=== PATIENT | female | born 1985 | race Caucasian/White ===

== ENCOUNTER 2020-11-30 06:09 | Observation (INO) | payer BC, SELFPAY ==
[2020-11-30] VITALS (7 sets, daily range): BP systolic 105–155; BP diastolic 69–98
[~2020-11-30] VITALS: Ht 157.5 cm; Wt 83.6 kg
[~2020-11-30 06:09] MED LIST: HEPARIN SOD (PORCINE) 5000UNITS/ML 1ML VIAL/SYRINGE SQ ONE; ceFAZolin SOD 1 GM in D5W MINI-BAG PLUS 50 ML IV ONE
[2020-11-30] MEDS ORDERED: AMIT25TA17 PO (06:49)
[2020-11-30] MEDS ORDERED: BUPR1TAB52 PO (06:49)
[2020-11-30] MEDS ORDERED: ZIPR20CA13 PO (06:49)
[2020-11-30] MEDS ORDERED: LORA2TAB14 PO (06:49)
[2020-11-30] MEDS ORDERED: dexameTHASONE 4 MG/ML 1ML VIAL (J1100 PER 1MG) As Ordered ONE (07:25)
[2020-11-30] MEDS ORDERED: LIDOCAINE 2% 100MG/5ML SDV (FOR ANES.) As Ordered ONE (07:25)
[2020-11-30] MEDS ORDERED: propofoL 200 MG/20 ML VIAL As Ordered ONE (07:25)
[2020-11-30] MEDS ORDERED: fentaNYL 250 MCG/5 ML INJECTION (J3010) As Ordered ONE (07:25)
[2020-11-30] MEDS ORDERED: ROCURONIUM BROMIDE 50 MG/5 ML VIAL As Ordered ONE ×2 (07:25→09:18)
[2020-11-30] MEDS ORDERED: ONDANSETRON 4MG/2ML VIAL As Ordered ONE (07:25)
[2020-11-30] MEDS ORDERED: MIDAZOLAM INJ 2MG/2ML VIAL (J2250 PER 1MG) As Ordered ONE (07:26)
[2020-11-30] MEDS ORDERED: GENTAMICIN SULF 80MG/2ML VIAL As Ordered ONE (07:31)
[2020-11-30] MEDS ORDERED: LIDOCAINE 1% MDV 20ML VIAL As Ordered ONE ×2 (07:31→09:53)
[2020-11-30] MEDS ORDERED: BUPIVACAINE LIPOSOME/PF 1.3% 20ML VIAL (13.3MG/ML)(EXPAREL)(C9290 PER1MG) As Ordered ONE (07:32)
[2020-11-30] MEDS ORDERED: EPINEPHrine INJ 1 MG/ML 1ML AMP As Ordered ONE ×2 (07:32→09:53)
[2020-11-30] MEDS ORDERED: SEVOFLURANE INHAL SOLN 250 ML BTL As Ordered ONE (08:28)
[2020-11-30] MEDS ORDERED: SUGAMMADEX SODIUM 500 MG/5 ML VIAL (BRIDION) As Ordered ONE (08:30)
[2020-11-30] MEDS ORDERED: ACETAMINOPHEN 1000MG 100ML IV BTL (OFIRMEV) (J0131 PER 10MG) As Ordered ONE (08:30)
[2020-11-30] MEDS ORDERED: HYDROmorphone HCL 2 MG/ML 1ML VIAL (J1170) As Ordered ONE (09:00)
[2020-11-30] MEDS ORDERED: ePHEDrine SULFATE 25 MG/5 ML(5MG/ML) SYRINGE As Ordered ONE (11:18)
[2020-11-30] MEDS ORDERED: ceFAZolin 1GM VIAL (J0690 PER 500MG) As Ordered ONE (12:07)
--- NOTE | 2020-11-30 13:19 | POST-OPPD ---
Postoperative Procedure Note Date Of Procedure: Nov 30, 2020 PREOPERATIVE DIAGNOSIS: Lipodystrophy back and thighs, abdominal skin redundancy POSTOPERATIVE DIAGNOSIS: same PROCEDURE: Liposculpture back and bilateral thighs, abdominoplasty SURGEON: Dr Brown PRINTER MACHINE: none ANESTHESIA: general ESTIMATED BLOOD LOSS: 150cc FINDINGS: lipodystrophy back, lateral and medial thigh SPECIMENS: pannus, liposuction fluid COMPLICATIONS: none REPLACED: none DRAINS: 10 mm DAVY x 2 POSTOPERATIVE CONDITION: stable DEANN BROWN DO Nov 30, 2020 13:19
[2020-11-30] MEDS ORDERED: LR 1,000 ML IV SCH (13:20)
[2020-11-30] MEDS ORDERED: ONDANSETRON 4MG/2ML VIAL IV PRN ×2 (13:20)
[2020-11-30] MEDS ORDERED: ACETAMINOPHEN TAB 650MG DOSE (2X325MG) PO PRN (13:20)
[2020-11-30] MEDS ORDERED: oxyCODONE 5MG TAB PO PRN (13:20)
--- NOTE | 2020-11-30 13:20 | ROOPDOC ---
[facility] Report Of Operation Report of Operation DATE OF PROCEDURE: 11/30/20 PREOPERATIVE DIAGNOSIS: Lipodystrophy back and thighs, abdominal skin redundancy POSTOPERATIVE DIAGNOSIS: same PROCEDURE: Liposculpture back and bilateral thighs, abdominoplasty SURGEON: Dr Brown PEARL DIGGER: none ANESTHESIA: general ESTIMATED BLOOD LOSS: 150cc FINDINGS: lipodystrophy back, lateral and medial thigh SPECIMENS: pannus 2034 gm, liposuction fluid 3700 ml COMPLICATIONS: none REPLACED: none DRAINS: 10 mm DAVY x 2 POSTOPERATIVE CONDITION: stable DESCRIPTION OF PROCEDURE: Procedure: Procedure: This is a 35-year-old female status post weight loss. Patient does not like remaining lipodystrophy on her back and her abdomen as well as her lateral thighs medial thighs down to the knee. Patient would like to have all those defects corrected. Patient is scheduled for liposculpture back, inner and outer thighs extending to the knee. Risks benefits and alternatives discussed with the patient in details. Informed consent confirmed and preoperative holding area. Patient was marked in upright position in the holding area. She was brought into the operating room, placed in supine position, preoperative antibiotics given, sequential stockings placed in the lower calves, and then general anesthesia is induced. Mandujano catheter introduced in the bladder without any difficulties with yellow clear urine present. Patient was placed in prone position with all bony prominences protected. She was prepped and draped in the usual sterile fashion. Two stab incisions were carried out along the upper back in the lower back. 1200 cc of tumescent solution was infiltrated throughout the upper and lower back. Vaser liposuction was performed for 5 minutes on each side. Then regular liposuction was done throughout the upper and lower back using different cannulas 3 and 4 mm in diameter. 1200 cc of liposuction fluid evacuated. Good symmetry achieved. Two small stab incisions carried out on the back of her thigh and tumescent solution infiltrated on the posterior lateral portion of the thigh 300 cc on each side. Suction assisted lipectomy performed with a 3 mm cannula taken out 300 cc of liposuction on each side. All incisions closed with interrupted 4 Monocryl sutures. Patient was repositioned into the supine position. She was prepped and draped in the usual sterile fashion. Two small stab incisions carried out on the upper medial thigh and the medial lower thigh. Tumescent solution infiltrated throughout the medial thigh and also through superior lateral thigh. Suction assisted lipectomy performed throughout the upper outer thigh and medial thigh all the way down to the knee. Total lipectomy 900 cc on each side. We turned our attention to the abdominoplasty portion of the procedure. Lower abdominal incision made 8 cm above the labial crease along patient's natural suprapubic crease. Incision carried out with 10 blade. Careful sharp dissection with electrocautery and PEEK cautery was done until the fascia of rectus muscle is identified. Following the musculoaponeurotic fascial plane superiorly, the abdominal skin and subcutaneous tissue are undermined. Vessels were identified throughout and either cauterized or suture ligated for hemostasis control. Infraumbilical flap was divided in the middle to aid the dissection. We continued our dissection until umbilicus was encountered. Rhomboid incision made around the umbilicus and dissection continued until xiphoid process superiorly and costal margins laterally. Rectus muscle evaluated and diathesis was identified 6 cm width at midline. Rectus muscle was plicated with 0 Vicryl sutures in interrupted fashion, followed by #1 PDS Stratofix sutures. Wound is irrigated with Gentamicin and normal saline irrigation. Exparel block given into rectus muscle total 16 mL. Patient placed on placed in the reflex position and excess tissue which consists off abdominal skin and subcutaneous tissue was measured and resected using electrocautery. Total weight of the pannus 2034 g. Careful hemostasis was assured. The flap was realigned and tacked with clamps. We started closure of the midline incision with deep sutures of 0 Vicryl. Subcutaneous layer closure with 3-0 Monocryl sutures, than 3-0 Monocryl V lock suture used for subdermal closure. The mons pubis was realigned. We continued closing the lower abdominal incision with 0 Vicryl sutures for deep layer, followed by 3-0 Monocryl sutures for subcutaneous layer, than 3-0 Monocryl V lock suture used for subdermal closure. Two10 mm Boris-Mueller drains were placed through lower abdominal incision and secured in place with 3-0 Monocryl sutures. New opening was created for the umbilical stump using electrocautery. The umbilicus was brought into view and sutured in place with interrupted 3-Monocryl, 4-0 Monocryl sutures and 5-0 plain gut sutures in the interrupted fashion. Remaining Exparel was given into the lower abdominal incision and the drain area. Prinio dressing applied to lower abdominal incision, Xeroform to umbilicus, and bulky dressing throughout. Abdominal binder applied. Foam padding with David dressing was applied to the both thighs. Patient extubated in the operating room without any difficulties and transferred to recovery room in stable condition. DEANN BROWN DO Nov 30, 2020 13:20
[2020-11-30] MEDS: fentaNYL 100 MCG/2 ML INJECTION (J3010) IV PRN ×2 (13:31→13:37)
[2020-11-30] MEDS: ceFAZolin SOD 1 GM in D5W MINI-BAG PLUS 50 ML IV SCH (16:27)
[2020-11-30] MEDS: PERCOCET 5MG/325MG TAB PO PRN ×2 (17:59→22:17)
--- NOTE | 2020-11-30 18:44 | ECGEPIP ---
[facility] Test Date: 2020-11-30 Pat Name: CHRISTINA WILKERSON Department: Room: - Gender: Female Radon Inspector: ALEXEY : 1985 Requested By: DEANN Warner Order Number: [id number] Reading MD: Phani Prabhakar Measurements Intervals [place] Rate: 94 P: 8 MS: 114 QRS: -3 QRSD: 86 T: 13 QT: 340 QTc: 425 Interpretive Statements Normal sinus rhythm No prior tracing in the system Electronically Signed on 11-30-2020 18:43:29 EDT by Phani Prabhakar
[2020-12-01] MEDS: ceFAZolin SOD 1 GM in D5W MINI-BAG PLUS 50 ML IV SCH ×3 (00:21→16:00)
[2020-12-01] MEDS: MORPHINE 4 MG/ML 1ML VIAL/SYRINGE (J2270) IV PRN ×4 (00:22→18:48)
[2020-12-01 02:00] VITALS: BP 118/26
[2020-12-01] MEDS: PERCOCET 5MG/325MG TAB PO PRN ×3 (02:27→17:14)
[2020-12-01] MEDS ORDERED: MORPHINE 2 MG/ML 1ML VIAL (J2270) IV ONE ×2 (05:55→08:10)
[2020-12-01 06:00] VITALS: BP 120/59
[2020-12-01] MEDS: LORazepam 2 MG/ML VIAL IV PRN ×2 (06:07→17:14)
--- NOTE | 2020-12-01 09:58 | IPNPDOC ---
Subjective General Date Seen: Dec 01, 2020 Subject Chief Complaint/History The patient is a 35-year-old female admitted with a reason for visit of Lipodystrohy Back,Thighs,Abdominal Skin Redundancy. Patient status liposuction back, thighs and abdominoplasty postop day 1. Patient is doing well as far is tolerating diet, urinating normally and ambulating. She still needs IV morphine to control her pain. Current Medications Current Medications Current Medications Medications (Trade) Dose Ordered Sig/Susan Route PRN Reason Start Time Stop Time Status Last Admin Dose Admin Acetaminophen (Tylenol Tab) 650 mg Q6H PRN PO MILD PAIN (PS 1-4) 11/30/20 13:20 Cefazolin Sodium 1 gm/Dextrose 50 ml @ 100 mls/hr Q8H IV 11/30/20 16:00 12/01/20 00:21 Fentanyl Citrate (Sublimaze) 25 mcg Q5MP PRN IV PAIN LEVEL 5-10 11/30/20 13:20 11/30/20 15:20 DC 11/30/20 13:37 Lactated Ringer's 1,000 ml @ 80 mls/hr [id number] IV 11/30/20 13:20 11/30/20 15:20 DC 11/30/20 13:25 Lorazepam (Ativan) 0.5 mg Q6HP PRN IV AGITATION 11/30/20 13:20 12/01/20 06:07 Morphine Sulfate (Morphine Sulfate Inj) 4 mg Q4HP PRN IV SEVERE PAIN (PS 8-10) 11/30/20 13:20 12/01/20 04:22 Ondansetron HCl (ZOFRAN INJection) 4 mg Q4H PRN IV NAUSEA OR VOMITING 11/30/20 13:20 Ondansetron HCl (ZOFRAN INJection) 4 mg Q4HP PRN IV NAUSEA OR VOMITING 11/30/20 13:20 11/30/20 15:20 DC 11/30/20 13:32 Oxycodone HCl (Roxicodone, Oxyir) 5 mg ASDIRECTED PRN PO PAIN LEVEL 1-4 11/30/20 13:20 11/30/20 15:20 DC 11/30/20 13:31 Oxycodone/ Acetaminophen (Percocet 5mg/ 325mg Tablet) 2 tab Q4HP PRN PO PAIN LEVEL 4-7 11/30/20 13:20 12/01/20 02:27 Allergies Coded Allergies: Contrast Media (Verified Allergy, Unknown, 11/23/20) RASH latex (Verified Allergy, Unknown, 11/23/20) RASH Objective Physical Examination Examination GENERAL APPEARANCE:Patient seen, laying in bed, awake, alert, and oriented. Comfortable, in no acute distress. SKIN: Warm and moist. NECK: Supple, no thyromegaly. No obvious jugular venous distention. LUNGS: Clear to auscultation bilaterally. No wheezing appreciated. HEART: No chest wall abnormalities. Regular rate and rhythm with no murmurs appreciated. ABDOMEN: Abdomen is soft, non-tender, non-distended. Incision intact. Umbilicus viable. DAVY drains with serosanguinous drainage. 40/40 cc/24hr each drain. Liposuction oozing stopped. Legs with ecchymosis, non expanding. EXTREMITIES: No edema identified. No calf tenderness. Vital Signs Vital Signs Date Time Temp Pulse Resp B/P (MAP) Pulse Ox O2 Delivery O2 Flow Rate FiO2 12/01/20 08:14 20 12/01/20 06:09 Room Air 12/01/20 06:00 98.4 102 120/59 (79) 97 11/30/20 15:30 2.0 I&Os I&O- Last 24 Hours up to 6 AM 12/01/20 06:00 Intake Total 7835 ml Output Total 140 ml Balance 7695 ml Impression S/p liposuction and abdominoplasty POD1 Continue with pain control and changing the regimen for pain meds. Plan to d/c home tonight after switching to PO pain meds. All dressings changed. F/up plastic surgery office on Friday. Plan / VTE VTE Prophylaxis Ordered?: Yes DEANN BROWN DO Dec 01, 2020 09:58
[2020-12-01 14:17] VITALS: BP 118/76
[2020-12-01] MEDS ORDERED: PERCOCET PO (15:38)
[2020-12-01] MEDS ORDERED: KETO10TAB PO (15:38)
== END 2020-12-01 19:05 | disposition home or self-care (01) ==
LOC: M SDC 06:09 → M MS5PR 06:10
PROVIDERS: ADMIT Plastic Surgery Surgery of the Hand; ATTEND Plastic Surgery Surgery of the Hand
DX: E88.1 Lipodystrophy, not elsewhere classified (principal); M79.3 Panniculitis, unspecified; Z79.899 Other long term (current) drug therapy; Z91.040 Latex allergy status; Z91.041 Radiographic dye allergy status; G47.33 Obstructive sleep apnea (adult) (pediatric); F17.290 Nicotine dependence, other tobacco product, uncomplicated
CPT/HCPCS: 15830; 15847; 15877; 15879; 81025; 88300; 93005; 96374; 96375; 96376; C9290; J0131; J0171; J0690; J1100; J1170; J1580; J1644; J2060; J2250; J2270; J2405; J3010